=== PATIENT | male | born 1980 | race Hispanic/Latino ===

== ENCOUNTER 2022-05-05 08:09 | Outpatient (CLI) | payer SELFPAY ==
[2022-05-05 10:02] LABS: #Basophils 0.1 10x3/uL (0.0-0.2); #Eosinphils 0.3 10x3/uL (0.0-0.5); #Monocytes 0.6 10x3/uL (0.0-1.1); #Neutrophils 3.1 10x3/uL (1.5-8.4); %Basophils 0.8 % (0.0-2.0); %Eosinophils 4.6 % (0.0-6.0); %Lymphocytes 35.1 % (18.0-47.0); %Monocytes 9.3 % (0.0-10.0); %Neutrophils 49.9 % (40.0-75.0); Hemoglobin 16.1 g/dL (13.5-17.5); Mean Corpuscular HGB CONC 34.9 g/dL (32.0-36.0); Mean Corpuscular Hemoglobin 30.4 pg (27.0-33.0); Mean Platelet Volume 11.4 fl (7.4-10.4); Platelet Count 181 10x3/uL (150-450); RBC Distribution Width 12.7 % (11.5-14.5); White Blood Cell (WBC) Count 6.2 10x3/uL (3.5-10.5)
[2022-05-05 10:36] LABS: Anion Gap 12 mmol/L (10-20); BUN (Urea Nitrogen) 16 mg/dL (8.9-20.6); Calc. Creatinine Clearance 0 mL/min (70-130); Carbon Dioxide 26 mmol/L (22-29); Chloride 105 mmol/L (98-107); Potassium 4.2 mmol/L (3.5-5.1); Sodium 139 mmol/L (136-145)
[2022-05-05 10:37] LABS: Calcium 9.6 mg/dL (7.8-10.44); Estimated GFR 117; Glucose 131 mg/dL (70-105)
== END 2022-05-05 08:10 | disposition home or self-care (01) ==
LOC: LABBT 08:09
PROVIDERS: ATTEND Orthopaedic Surgery Hand Surgery
DX: Z01.812 Encounter for preprocedural laboratory examination (principal)
CPT/HCPCS: 80048; 85025; 87811

== ENCOUNTER 2022-05-07 08:00 | Day surgery (SDC) | payer OTHER ==
[2022-05-04 15:07] VITALS: BMI 34.7
[2022-05-07] MEDS ORDERED: Vancomycin (BATCH) 1.5 GRAM/300 ML BAG ONE (08:31)
[2022-05-07] MEDS ORDERED: Bupivacaine PF 0.5% 30 ML VIAL ONE (09:40)
[2022-05-07] MEDS ORDERED: Neomycin-Polymyxin 1 ML AMP ONE (09:40)
[2022-05-07] MEDS ORDERED: Bacitracin Zinc Ointment 30 gm TUBE ONE (09:40)
[2022-05-07] MEDS ORDERED: fentaNYL Citrate/PF 100 MCG/2 ML SYRINGE ONE (09:52)
[2022-05-07] MEDS ORDERED: Dexamethasone 20 MG/5 ML VIAL ONE (09:59)
[2022-05-07] MEDS ORDERED: Glycopyrrolate 0.2 MG/ML 5 ML SYRINGE ONE (09:59)
[2022-05-07] MEDS ORDERED: Ondansetron PF 4 MG/2 ML Vial ONE (09:59)
[2022-05-07] MEDS ORDERED: Lidocaine 1% PF 5 ML VIAL ONE (09:59)
[2022-05-07] MEDS ORDERED: PROPOFOL 200 MG/20 ML VIAL ONE (09:59)
[2022-05-07] MEDS ORDERED: Ketorolac Tromethamine 30 MG/ML VIAL ONE (09:59)
[2022-05-07] MEDS ORDERED: ePHEDrine 50 MG/ML VIAL ONE (09:59)
[2022-05-07] MEDS ORDERED: Betamet Acet/Betamet Na Ph 30 MG/5 ML VIAL ONE (10:32)
== END 2022-05-07 12:25 | disposition home or self-care (01) ==
LOC: SDC 08:00
PROVIDERS: ATTEND Orthopaedic Surgery Hand Surgery
PROC: 0LPX0JZ Removal of Synthetic Substitute from Upper Tendon, Open Approach (ICD-10-PCS; principal; 2022-05-07)
PROC: 0RNX0ZZ Release Left Finger Phalangeal Joint, Open Approach (ICD-10-PCS; principal; 2022-05-07)
PROC: 0LN80ZZ Release Left Hand Tendon, Open Approach (ICD-10-PCS; principal; 2022-05-07)
DX: M24.542 Contracture, left hand (principal); T84.84XA Pain due to internal orthopedic prosthetic devices, implants and grafts, initial encounter; I10 Essential (primary) hypertension; E11.9 Type 2 diabetes mellitus without complications; Z79.84 Long term (current) use of oral hypoglycemic drugs; Z79.899 Other long term (current) drug therapy; Z88.0 Allergy status to penicillin; Z87.891 Personal history of nicotine dependence; Z20.822 Contact with and (suspected) exposure to COVID-19
CPT/HCPCS: 76000; 87811; J0702; J1100; J1885; J2405; J2704; J3370; J3490; S0020